=== PATIENT | male | born 1995 | race Caucasian/White ===

== ENCOUNTER 2016-09-13 14:35 | Emergency (ER) | payer SELFPAY ==
[~2016-09-13] VITALS: Ht 182.9 cm; Wt 72.6 kg
[2016-09-13 14:44] VITALS: BP 110/72
[2016-09-13] MEDS ORDERED: ALPRAZolam 0.5mg tab ORAL PRN (14:45)
[2016-09-13 14:53] VITALS: BP 110/72
--- NOTE | 2016-09-13 15:38 | Emergency Room Report ---
History of Present Illness General Chief Complaint: Behavioral Complaint Source: Patient Present Illness HPI 21YOM BIBEMS for "panic attack." Requesting "a bar of xanax." States lost his prescription. Doesnt have psychiatrist. Denies SI, HI, AVH. Homeless. States panic attack is "like palpitations, all this pressure on me." Denies drug , ETOH abuse. Denies trauma. Denies other medical problems. Allergies: Coded Allergies: No Known Allergies (Unverified , 09/13/16) Patient History Past Medical History: none Past Surgical History: none Pertinent Family History: none Social History: Denies: alcohol use, drug use, smoking Immunizations: UTD Reviewed Nursing Documentation: PMH: Agreed, PSxH: Agreed Nursing Documentation-PMH Past Medical History: No History, Except For History Of Psychiatric Problem: Yes - anxiety Review of Systems All Other Systems: negative except mentioned in HPI Physical Exam Vital Signs Date Time Temp Pulse Resp B/P Pulse Ox O2 Delivery O2 Flow Rate FiO2 09/13/16 14:29 68 16 110/72 98 Room Air Sp02 EP Interpretation: reviewed, normal General Appearance: normal inspection, well appearing, no apparent distress, alert, GCS 15, non-toxic, other - disheveled, dirty. Initially sleeping on floor of [employer] Head: normocephalic, atraumatic Eyes: bilateral eye EOMI, bilateral eye PERRL ENT: normal ENT inspection, hearing grossly normal, normal voice Neck: normal inspection, full range of motion, supple, no bony tend Respiratory: normal inspection, lungs clear, normal breath sounds, no respiratory distress, no retraction, no wheezing Cardiovascular #1: regular rate, rhythm, no edema Gastrointestinal: normal inspection, normal bowel sounds, non tender, soft, no guarding, no hernia Genitourinary: no CVA tenderness Musculoskeletal: normal inspection, back normal, normal range of motion, Kaleigh' s Sign negative Neurologic: normal inspection, alert, oriented x3, responsive, timber feller III-XII nml as tested, motor strength/tone normal, speech normal Psychiatric: normal inspection, judgement/insight normal, memory normal, mood/ affect normal, no suicidal/homicidal ideation, no delusions, anxious Skin: normal inspection, normal color, no rash Lymphatic: normal inspection Medical Decision Making Diagnostic Impression: Primary Impression: Behavioral change ER Course 21 YOM with alleged panic attack. VSS. Afebrile Denies SI, HI, AVH Likely malingering for benzos Cant adequately provide quality HPI into the panic attack Informed patient I can give dose here but not Rx because he doesnt have reliable Psych followup Gave list of outpatient walk-in psych centers [place] Last Vital Signs Date Time Temp Pulse Resp B/P Pulse Ox O2 Delivery O2 Flow Rate FiO2 09/13/16 14:53 73 16 110/72 98 Room Air Status: improved Disposition: HOME, SELF-CARE Condition: Improved Patient Instructions: Palpitations, [id number] Additional Instructions: - Please go to a walk-in psych facility to see a psychiatrist tomorrow/Wednesday. LEO TURPIN M.D. Sep 13, 2016 15:38
== END 2016-09-13 15:30 | disposition home or self-care (01) ==
LOC: EDBD 14:35 → EMR 15:10
DX: F68.8 Other specified disorders of adult personality and behavior (principal); Z59.0 Homelessness; Z86.59 Personal history of other mental and behavioral disorders
CPT/HCPCS: 99283

== ENCOUNTER 2016-10-14 00:36 | Emergency (ER) | payer MEDICAID ==
[~2016-10-14] VITALS: Ht 182.9 cm; Wt 68.0 kg
[2016-10-14] MEDS ORDERED: NKM (00:42)
--- NOTE | 2016-10-14 01:01 | Emergency Room Report ---
History of Present Illness General Chief Complaint: Behavioral Complaint Source: Patient Present Illness HPI Is a 21-year-old male was psych history. He presents with chief complaint of behavioral complaint. He was walking the middle the road and police brought him here. Patient said he is homeless. He said that he felt anxious and wants benzo. No suicidal thoughts or homicidal thought. Denies any other complaint. Said that he is hungry. He said that he doesn't want any family member to be contacted. Allergies: Coded Allergies: No Known Allergies (Unverified , 09/13/16) Patient History Past Medical History: see triage record, old chart reviewed, psych hx Past Surgical History: other Pertinent Family History: none Social History: Reports: drug use, smoking Immunizations: other Reviewed Nursing Documentation: PMH: Agreed, PSxH: Agreed Nursing Documentation-PMH Past Medical History: No Stated History Review of Systems Eye: Denies: blurred vision, eye pain ENT: Denies: ear pain, nose congestion, throat swelling Respiratory: Denies: cough, shortness of breath Cardiovascular: Denies: chest pain, palpitations Gastrointestinal: Denies: abdominal pain, diarrhea, nausea, vomiting Musculoskeletal: Denies: back pain, joint pain Skin: Denies: rash Neurological: Denies: headache, numbness Endocrine: Denies: increased thirst, increased urine Hematologic/Lymphatic: Denies: easy bruising All Other Systems: negative except mentioned in HPI Physical Exam Vital Signs Date Time Temp Pulse Resp B/P Pulse Ox O2 Delivery O2 Flow Rate FiO2 10/14/16 00:36 97.5 114 18 126/78 96 Room Air vitals with tachycardia Sp02 EP Interpretation: reviewed, normal General Appearance: well appearing, no apparent distress, alert, other - Disheveled Head: normocephalic, atraumatic Eyes: bilateral eye EOMI, bilateral eye PERRL ENT: hearing grossly normal, normal pharynx Neck: full range of motion, supple, no meningismus Respiratory: chest non-tender, lungs clear, normal breath sounds Cardiovascular #1: regular rate, rhythm, no murmur Gastrointestinal: normal bowel sounds, non tender, no mass, no organomegaly, no bruit, non-distended Musculoskeletal: back normal, gait/station normal, normal range of motion Psychiatric: mood/affect normal Skin: warm/dry Medical Decision Making Diagnostic Impression: Primary Impression: Psychosis Qualified Codes: F29 - Unspecified psychosis not due to a substance or known physiological condition Additional Impression: Polysubstance abuse ER Course Patient presents with an OB behavior. He probably has some underlying psychiatric disorder schizophrenia. He does admit to IV drug use. He has track garcia on his arms. He has no criteria for 5150. This patient is a chronic risk of self injury due to poor impulse control, limited coping skills, and judgment intermittently impaired by intoxication. I believe that the available clinical evidence to suggest that these characteristics derived primarily from personality disorder and are likely very stable over time. Hospitalization would likely attenuate risk of self-harm only during skilled nursing period, without lasting risk reduction. Serious self-harm , while possible, would likely be inadvertent, and because of impulsivity, and foreseeable. For these reasons, I do not believe hospitalization would provide meaningful reduction in risk of self-harm. Last Vital Signs Date Time Temp Pulse Resp B/P Pulse Ox O2 Delivery O2 Flow Rate FiO2 10/14/16 00:36 97.5 114 18 126/78 96 Room Air Status: improved Disposition: HOME, SELF-CARE Condition: Stable Patient Instructions: Self-Destructive Behavior Additional Instructions: abstain from drugs and alcohol. Go to mental health clinic in [facility] in one to 2 days. Return if worse. VELASQUEZ ARAYA M.D. Oct 14, 2016 01:01
[2016-10-14 04:04] VITALS: BP 120/76
[2016-10-14 04:20] VITALS: BP 120/76
== END 2016-10-14 04:22 | disposition home or self-care (01) ==
LOC: EDBD 00:36 → EMR 00:51
DX: F29 Unspecified psychosis not due to a substance or known physiological condition (principal); F19.10 Other psychoactive substance abuse, uncomplicated; Z59.0 Homelessness; F17.200 Nicotine dependence, unspecified, uncomplicated
CPT/HCPCS: 99283